=== PATIENT | male | born 1945 | race Caucasian/White ===

== ENCOUNTER 2017-10-21 20:30 | Emergency (ER) | payer MEDICARE, MEDICAID ==
[~2017-10-21] VITALS: Ht 167.6 cm; Wt 68.0 kg
[~2017-10-21 20:30] MED LIST: HYDR-548 PO; Pantoprazole Sodium PO; RIVA10TA PO
[2017-10-21 20:55] VITALS: BP 111/67
[2017-10-22 01:22] LABS: APPEARANCE,URINE CLEAR (CLEAR); BILIRUBIN,URINE NEGATIVE (NEGATIVE); BLOOD, URINE NEGATIVE Ery/uL (NEGATIVE); KETONES,URINE NEGATIVE (NEGATIVE); LEUKOCYTE ESTERASE ,URINE NEGATIVE (NEGATIVE); NITRITE, URINE NEGATIVE (NEGATIVE); PROTEIN,URINE NEGATIVE (NEGATIVE); UGLUCOSE NEGATIVE (NEGATIVE)
[2017-10-22 01:23] LABS: COLOR,URINE DARK YELLOW (YELLOW)
[2017-10-22 01:26] LABS: BACTERIA,URINE Few /HPF (None Seen); RBC,URINE NONE SEEN /HPF (0-2); SQUAMOUS EPITHELIAL CELL,UR Rare /HPF (None Seen); WBC,URINE 0-2 /HPF (0-3)
--- NOTE | 2017-10-22 02:30 | NUR ---
EATING 2 BAGS OF CHIPS AND 2 COCACOLAS. DENIES ANY ABD PAIN/N/V
== END 2017-10-22 02:54 | disposition home or self-care (01) ==
LOC: ER 20:32
DX: R30.0 Dysuria (principal); F17.200 Nicotine dependence, unspecified, uncomplicated; Z59.0 Homelessness
CPT/HCPCS: 81001; 99283; A4606; 81000-TC; Z7610

== ENCOUNTER 2023-02-05 11:49 | Emergency (ER) | payer OTHER ==
[~2023-02-05] VITALS: Ht 165.1 cm; Wt 79.8 kg
[~2023-02-05 11:49] MED LIST changes: +HYDR-4354 PO; -HYDR-548 PO
--- NOTE | 2023-02-05 12:30 | NUR ---
PT FROM [facility], CC CHEST PAIN X2 DAYS. WITH COUGH. ON BED PUT ON MONITOR AND PULSE. MD AT BEDSIDE FOR EVAL.
--- NOTE | 2023-02-05 14:38 | NUR ---
ADDRESS: [id number] [facility]
--- NOTE | 2023-02-05 14:41 | NUR ---
CALLED [facility] FOR TRANSPORT ETA 60 MINS.
--- NOTE | 2023-02-05 15:45 | NUR ---
PICKED UP BY TRANSPORT
[2023-02-05 16:09] VITALS: BP 134/64
== END 2023-02-05 16:09 | disposition home or self-care (01) ==
LOC: ER 11:54
DX: R05.9 Cough, unspecified (principal); F17.200 Nicotine dependence, unspecified, uncomplicated; Z79.899 Other long term (current) drug therapy
CPT/HCPCS: 71045-TC